=== PATIENT | female | born 1940 | race Caucasian/White ===

== ENCOUNTER 2021-03-16 12:15 | Outpatient (CLI) | payer MEDICARE | END 2021-03-16 12:16 | disposition home or self-care (01) | LOC: CT 12:15 | PROVIDERS: ATTEND Neurological Surgery | DX: M54.2 Cervicalgia (principal); R29.898 Other symptoms and signs involving the musculoskeletal system; R26.89 Other abnormalities of gait and mobility; M47.812 Spondylosis without myelopathy or radiculopathy, cervical region; M43.13 Spondylolisthesis, cervicothoracic region; R93.7 Abnormal findings on diagnostic imaging of other parts of musculoskeletal system | CPT/HCPCS: 70450; 72040 ==